=== PATIENT | male | born 1990 | race African-American/Black ===

== ENCOUNTER 2017-04-27 00:12 | Emergency (ER) | payer MEDICAID ==
[~2017-04-27] VITALS: Ht 182.9 cm; Wt 77.1 kg
[2017-04-27 00:21] VITALS: BP 115/70
== END 2017-04-27 00:40 | disposition home or self-care (01) ==
LOC: ER 00:22
DX: Z76.0 Encounter for issue of repeat prescription (principal); J45.909 Unspecified asthma, uncomplicated
CPT/HCPCS: A4606; Z7610